=== PATIENT | male | born 1980 | race Caucasian/White ===

== ENCOUNTER 2019-02-19 21:33 | Emergency (ER) | payer SELFPAY ==
[~2019-02-19] VITALS: Ht 185.4 cm; Wt 88.5 kg
[~2019-02-19 21:33] MED LIST: HYDR-3583 PO; HYDR1CAP2 PO; NAPR-243 PO
--- OUTSIDE RECORDS SUMMARY | 2019-02-19 21:38 | XMS REPORT | Continuity of Care Document ---
Author Organization Unknown Address Unknown Allergies Active Description Code Type Severity Reaction Onset Reported/Identified Relationship to Patient Clinical Status Yes NKANo Known Allergies NKA Miscellaneous Allergy Unknown N/A 06/08/2006 Medications There is no data. Problems Date Dx Coded Attending Type Code Diagnosis Diagnosed By 03/26/2010 Ot 802.24 03/26/2010 Ot 959.09 03/26/2010 Ot E000.0 03/26/2010 Ot E016.9 03/26/2010 Ot E849.3 03/26/2010 Ot E917.9 02/26/2011 Ot 291.81 02/26/2011 Ot 303.00 02/26/2011 Ot 305.1 03/06/2012 Ot 840.9 03/06/2012 Ot 959.2 03/06/2012 Ot E000.0 03/06/2012 Ot E029.9 03/06/2012 Ot E849.8 03/06/2012 Ot E927.0 11/18/2014 MEHUL ARSHAD MD Ot 789.09 11/28/2014 MEHUL ARSHAD MD Ot 789.09 Procedures There is no data. Results There is no data. Encounters ACCT No. Visit Date/Time Discharge Status Pt. Type Provider Facility Loc./Unit Complaint [id number] 11/15/2014 09:17:00 11/15/2014 23:59:59 CLS Outpatient MEHUL ARSHAD MD [facility] RAD [id number] 03/06/2012 21:08:00 Document Registration [id number] 02/23/2011 18:32:00 Document Registration [id number] 03/26/2010 17:56:00 Document Registration [id number] 12/04/2018 10:50:00 12/04/2018 23:59:59 CLS [id number] 12/08/2018 15:20:00 12/08/2018 23:59:59 CLS [facility] [place]
[2019-02-19] MEDS ORDERED: NS IV 1000 ML 1,000 ML IV ONE (22:17)
[2019-02-19 22:37] LABS: BASOPHILS % (AUTO) 1 % (0-10); EOSINOPHILS # (AUTO) 0.3 10^3/uL (0.0-0.3); EOSINOPHILS % (AUTO) 4 % (0-10); HEMATOCRIT 45 % (40-54); HEMOGLOBIN 15.8 G/DL (13.3-17.7); LYMPHOCYTES # (AUTO) 2.1 X 10^3 (1.0-4.0); LYMPHOCYTES % (AUTO) 36 % (12-44); MEAN CORPUSCULAR HEMOGLOBIN 28 PG (25-34); MEAN CORPUSCULAR HGB CONC 35 G/DL (32-36); MEAN CORPUSCULAR VOLUME 81 FL (80-99); MEAN PLATELET VOLUME 10.3 FL (7.4-10.4); MONOCYTES # (AUTO) 0.5 X 10^3 (0.0-1.0); MONOCYTES % (AUTO) 9 % (0-12); NEUTROPHILS # (AUTO) 2.8 X 10^3 (1.8-7.8); NEUTROPHILS % (AUTO) 50 % (42-75); PLATELET COUNT 220 10^3/uL (130-400); RED CELL DISTRIBUTION WIDTH 13.9 % (10.0-14.5); WHITE BLOOD COUNT 5.7 10^3/uL (4.3-11.0)
[2019-02-19 22:54] LABS: ALANINE AMINOTRANSFERASE 49 U/L (0-55); ALBUMIN 4.2 GM/DL (3.2-4.5); ALKALINE PHOSPHATASE 91 U/L (40-136); BILIRUBIN,TOTAL 0.4 MG/DL (0.1-1.0); BUN/CREATININE RATIO 16; CALCIUM 9.5 MG/DL (8.5-10.1); CARBON DIOXIDE 24 MMOL/L (21-32); CHLORIDE 106 MMOL/L (98-107); CREATININE SERUM 0.79 MG/DL (0.60-1.30); GFR ESTIMATED > 60; GLUCOSE 97 MG/DL (70-105); POTASSIUM 3.5 MMOL/L (3.6-5.0); SODIUM 143 MMOL/L (135-145); TOTAL PROTEIN 6.7 GM/DL (6.4-8.2)
[2019-02-19] MEDS ORDERED: DOXYCYCLINE 100 MG (VIBRAMYCIN) TABLET PO STA (23:23)
--- NOTE | 2019-02-19 23:23 | ED General ---
General Stated Complaint: SWELLING IN BOTH LEGS Source of Information: Patient Exam Limitations: No Limitations History of Present Illness Date Seen by Provider: February 19, 2019 Time Seen by Provider: 22:12 Initial Comments Here with report of feet swelling bilateral he is unsure of the cause of that is concerned about infection. Does have athlete's foot to both feet that he is currently treating uplg-oel-bvtnirq. 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 Denies fever or chills. Denies weakness. Does report tick bite last week and believes that it may of been on for a day. Timing/Duration: 1-2 Days Severity: Mild, Moderate Modifying Factors: improves with Rest Associated Systoms: No Cough, No Fever/Chills, No Nausea/Vomiting, No Shortness of Air, No Weakness Allergies and Home Medications Allergies Coded Allergies: NKANo Known Allergies (Verified Allergy, Unknown, 06/08/06) Home Medications Hydrocodone Bit/Acetaminophen 1 Each Capsule, 1 EACH PO PRN, (Reported) Hydrocodone Bit/Acetaminophen 1 Tab Tab, 1 EA PO Q 4 - 6 HR PRN Prescribed by: SIENA SMITH on 03/26/102007 Naproxen 500 Mg Tablet, 1 EACH PO BID - TID PRN Prescribed by: JENA ELY on 03/06/122208 Patient Home Medication List Home Medication List Reviewed: Yes Review of Systems Review of Systems Constitutional: see HPI; No chills, No fever EENTM: no symptoms reported Respiratory: no symptoms reported Cardiovascular: no symptoms reported Gastrointestinal: no symptoms reported Genitourinary: no symptoms reported Musculoskeletal: see HPI, joint swelling, muscle pain Skin: no symptoms reported Psychiatric/Neurological: No Symptoms Reported All Other Systems Reviewed Negative Unless Noted: Yes Past Exhoaot-Etzcia-Vmtlac Hx Past Med/Social Hx: Reviewed Nursing Past Med/Soc Hx Patient Social History Alcohol Use: Occasionally Uses Recreational Drug Use: No Smoking Status: Current Everyday Smoker Recent Foreign Travel: No Contact w/Someone Who Travel: No Past Medical History Surgeries: Yes Orthopedic Respiratory: No Cardiac: No Neurological: No Reproductive Disorders: No Gastrointestinal: No Musculoskeletal: No Endocrine: No Family Medical History Reviewed Nursing Family Hx No Pertinent Family Hx Physical Exam Vital Signs Capillary Refill : Height, Weight, BMI Height: '" Weight: lbs. oz. kg; BMI Method:Stated General Appearance: No Apparent Distress, WD/WN HEENT: PERRL/EOMI, Pharynx Normal Neck: Non Tender, Supple Respiratory: Lungs Clear, Normal Breath Sounds Cardiovascular: Regular Rate, Rhythm, No Murmur Gastrointestinal: Non Tender, Soft Back: Normal Inspection, No CVA Tenderness, No Vertebral Tenderness Extremity: Swelling (bilateral ankles) Neurologic/Psychiatric: Alert, Oriented x3 Skin: Normal Color, Warm/Dry Focused Exam Lactate Level 02/19/19 22:24: Lactic Acid Level 1.57 Lactic Acid Level Laboratory Tests Test 02/19/19 22:24 Lactic Acid Level 1.57 MMOL/L (0.50-2.00) Progress/Results/Core Measures Suspected Sepsis SIRS Temperature: Pulse: Respiratory Rate: Laboratory Tests 02/19/19 22:24: White Blood Count 5.7 Blood Pressure / Mean: 02/19/19 22:24: Lactic Acid Level 1.57 Laboratory Tests 02/19/19 22:24: Creatinine 0.79, Platelet Count 220, Total Bilirubin 0.4 Results/Orders Lab Results Laboratory Tests Test 02/19/19 22:24 Range/Units White Blood Count 5.7 4.3-11.0 10^3/uL Red Blood Count 5.56 4.35-5.85 10^6/uL Hemoglobin 15.8 13.3-17.7 G/DL Hematocrit 45 40-54 % Mean Corpuscular Volume 81 80-99 FL Mean Corpuscular Hemoglobin 28 25-34 PG Mean Corpuscular Hemoglobin Concent 35 32-36 G/DL Red Cell Distribution Width 13.9 10.0-14.5 % Platelet Count 220 130-400 10^3/uL Mean Platelet Volume 10.3 7.4-10.4 FL Neutrophils (%) (Auto) 50 42-75 % Lymphocytes (%) (Auto) 36 12-44 % Monocytes (%) (Auto) 9 0-12 % Eosinophils (%) (Auto) 4 0-10 % Basophils (%) (Auto) 1 0-10 % Neutrophils # (Auto) 2.8 1.8-7.8 X 10^3 Lymphocytes # (Auto) 2.1 1.0-4.0 X 10^3 Monocytes # (Auto) 0.5 0.0-1.0 X 10^3 Eosinophils # (Auto) 0.3 0.0-0.3 10^3/uL Basophils # (Auto) 0.0 0.0-0.1 10^3/uL Sodium Level 143 135-145 MMOL/L Potassium Level 3.5 L 3.6-5.0 MMOL/L Chloride Level 106 98-107 MMOL/L Carbon Dioxide Level 24 21-32 MMOL/L Anion Gap 13 5-14 MMOL/L Blood Urea Nitrogen 13 7-18 MG/DL Creatinine 0.79 0.60-1.30 MG/DL Estimat Glomerular Filtration Rate > 60 BUN/Creatinine Ratio 16 Glucose Level 97 70-105 MG/DL Lactic Acid Level 1.57 0.50-2.00 MMOL/L Calcium Level 9.5 8.5-10.1 MG/DL Corrected Calcium 9.3 8.5-10.1 MG/DL Total Bilirubin 0.4 0.1-1.0 MG/DL Aspartate Amino Transf (AST/SGOT) 33 5-34 U/L Alanine Aminotransferase (ALT/SGPT) 49 0-55 U/L Alkaline Phosphatase 91 40-136 U/L C-Reactive Protein High Sensitivity 0.32 0.00-0.50 MG/DL Total Protein 6.7 6.4-8.2 GM/DL Albumin 4.2 3.2-4.5 GM/DL My Orders Orders - RAJ LOPEZ MD Ed Iv/Invasive Line Start (02/19/19 22:17) Ns Iv 1000 Ml (Sodium Chloride 0.9%) (02/19/19 22:17) Cbc With Automated Diff (02/19/19 22:17) Comprehensive Metabolic Panel (02/19/19 22:17) Hs C Reactive Protein (02/19/19 22:17) Lactic Acid Analyzer (02/19/19 22:17) Tick Panel With Lyme Eia (02/19/19 22:17) Blood Culture (02/19/19 22:17) Medications Given in ED Current Medications Medications Dose Ordered Sig/Arlyn Route Start Time Stop Time Status Last Admin Dose Admin Sodium Chloride 1,000 ml @ 0 mls/hr Q0M ONCE IV 02/19/19 22:17 02/19/19 22:20 DC 02/19/19 22:41 1,000 MLS/HR Vital Signs/I&O Capillary Refill : Progress Note : Progress Note Seen and evaluated. IV, labs, blood cultures and lactic acid ordered. Normal saline 1 L bolus. Monitor patient. 2325: Labs reviewed and are negative. Given his history of tick bite and history of MRSA we will initiate doxycycline. 10 day dose ordered and will be updated if tick panel was positive. Discharged home with return precautions. Patient verbalize understanding instructions and agreement with plan. Departure Impression Primary Impression: Bilateral swelling of feet and ankles Additional Impressions: Tick bite Qualified Codes: W57.XXXA - Bitten or stung by nonvenomous insect and other nonvenomous arthropods, initial encounter Athlete's foot Disposition: HOME, SELF-CARE Condition: Improved Departure-Patient Inst. Decision time for Depature: 23:28 Referrals: NO,LOCAL PHYSICIAN (PCP/Family) Primary Care Physician Patient Instructions: Athlete's Foot (DC), Insect Bites and Stings (DC) Add. Discharge Instructions: Take medications as directed. Follow-up with your Dr. in a few days for recheck. Return for worse pain, fever, vomiting, weakness, breathing around other concerns as needed. Use antifungal ytba-igb-lnzfyfh cream or powder for your athletes foot condition. You should replace your shoes and wear socks. Scripts Doxycycline Hyclate (Doxycycline Hyclate) 100 Mg Tablet 100 MG PO BID, #20 TAB 0 Refills Prov: RAJ LOPEZ MD 02/19/19 RAJ LOPEZ MD February 19, 2019 23:23
[2019-02-19] MEDS ORDERED: DOXY100T2 PO (23:31)
[2019-02-19 23:40] VITALS: BP 119/89
== END 2019-02-19 23:43 | disposition home or self-care (01) ==
LOC: EDUNIT# 21:33 → ER 21:34
DX: S80.861A Insect bite (nonvenomous), right lower leg, initial encounter (principal); S80.862A Insect bite (nonvenomous), left lower leg, initial encounter; B35.3 Tinea pedis; F17.200 Nicotine dependence, unspecified, uncomplicated; Z86.14 Personal history of Methicillin resistant Staphylococcus aureus infection; W57.XXXA Bitten or stung by nonvenomous insect and other nonvenomous arthropods, initial encounter
CPT/HCPCS: 36415; 80053; 83605; 85025; 86141; 86618; 86666; 86668; 86757; 87040

== ENCOUNTER → 2019-02-25 | Emergency (ER) | payer SELFPAY | LOC: ER 14:26 ==

== ENCOUNTER 2022-01-30 19:43 | Emergency (ER) | payer MEDICAID ==
[~2022-01-30] VITALS: Ht 182 cm; Wt 90.7 kg
[~2022-01-30 19:43] MED LIST changes: +DOXY100T2 PO
[2022-01-30] MEDS ORDERED: cefTRIAXone 1 GM PRE-MIX 50 ML IV ONE (20:15)
[2022-01-30] MEDS ORDERED: fentaNYL INJ 100 MCG/2 ML AMP IVP ONE (20:15)
[2022-01-30] MEDS ORDERED: NS IV 1000 ML 1,000 ML IV SCH ×2 (20:15)
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
[2022-01-30 20:27] LABS: BASOPHILS % (AUTO) 0 % (0-10); EOSINOPHILS # (AUTO) 0.5 10^3/uL (0.0-0.3); EOSINOPHILS % (AUTO) 4 % (0-10); HEMATOCRIT 41 % (40-54); LYMPHOCYTES # (AUTO) 1.4 10^3/uL (1.0-4.0); LYMPHOCYTES % (AUTO) 12 % (12-44); MEAN CORPUSCULAR HEMOGLOBIN 29 pg (25-34); MEAN CORPUSCULAR HGB CONC 34 g/dL (32-36); MEAN CORPUSCULAR VOLUME 83 fL (80-99); MEAN PLATELET VOLUME 10.1 fL (9.0-12.2); MONOCYTES # (AUTO) 1.3 10^3/uL (0.0-1.0); MONOCYTES % (AUTO) 11 % (0-12); NEUTROPHILS % (AUTO) 71 % (42-75); PLATELET COUNT 281 10^3/uL (130-400); WHITE BLOOD COUNT 11.2 10^3/uL (4.3-11.0)
[2022-01-30 20:29] LABS: ALBUMIN 3.8 GM/DL (3.2-4.5); POTASSIUM 3.8 MMOL/L (3.6-5.0)
[2022-01-30 20:30] LABS: CALCIUM 9.6 MG/DL (8.5-10.1)
[2022-01-30 20:31] LABS: TOTAL PROTEIN 7.4 GM/DL (6.4-8.2)
[2022-01-30 20:33] LABS: BILIRUBIN,TOTAL 0.7 MG/DL (0.1-1.0)
[2022-01-30 20:35] LABS: INR 1.1 (0.8-1.4); PROTHROMBIN TIME PATIENT 14.5 SEC (12.2-14.7)
--- NOTE | 2022-01-30 20:49 | Diagnostic Imaging Report ---
EXAMINATION: Chest 1 view. HISTORY: Sepsis. COMPARISON: None available. FINDINGS: The lung volumes are low. Bibasilar atelectasis is seen. No large pleural effusion or pneumothorax is seen. The cardiomediastinal silhouette is normal in size and contour. No acute osseous abnormality is seen. Old left-sided rib fractures are seen. IMPRESSION: Low lung volumes with bibasilar atelectasis. Dictated by: Dictated on workstation # [id number]
--- NOTE | 2022-01-30 20:49 | Diagnostic Imaging Report ---
PROCEDURE: CT urinary tract, rule out kidney stone. TECHNIQUE: Multiple contiguous axial images were obtained through the abdomen and pelvis without the use of intravenous contrast. Auto Exposure Controls were utilized during the CT exam to meet ALARA standards for radiation dose reduction. INDICATION: Flank pain. COMPARISON: None. FINDINGS: The heart is unremarkable. Subsegmental atelectasis is seen in the lung bases. A calculus is seen in the proximal right ureter measuring 1.1 cm. Calculus is seen in the proximal left ureter measuring 0.7 cm. There is moderate bilateral hydronephrosis. The urinary bladder is nondistended. No bladder calculi are seen. There is hepatic steatosis. No focal hepatic lesions are seen. The gallbladder is unremarkable. The spleen, pancreas and adrenal glands have a normal appearance. There is no pathologically enlarged mesenteric or retroperitoneal adenopathy. The bowel loops are nondilated. The appendix is visualized in the right lower quadrant and has a normal appearance. There is no free fluid or free air. No acute osseous abnormalities. Surgical hardware and chronic fractures are visualized in the pelvis. IVC filter is in place. There is no free air, loculated collection, or adenopathy in the pelvis. IMPRESSION: 1. Bilateral obstructing calculi in the proximal ureters with bilateral moderate hydronephrosis. 2. Hepatic steatosis. Dictated by: Dictated on workstation # [id number]
[2022-01-30 22:08] LABS: BILIRUBIN,URINE NEGATIVE (NEGATIVE); CLARITY,URINE SL CLOUDY; COLOR,URINE YELLOW; GLUCOSE, URINE (UA) NEGATIVE (NEGATIVE); KETONES,URINE NEGATIVE (NEGATIVE); LEUKOCYTE ESTERASE ,URINE 3+ (NEGATIVE); NITRITE,URINE NEGATIVE (NEGATIVE); PROTEIN,URINE 1+ (NEGATIVE)
--- NOTE | 2022-01-30 22:25 | Diagnostic Imaging Report ---
REASON FOR EXAM: Renal stone. COMPARISON: CT abdomen and pelvis performed earlier the same date. TECHNIQUE: Two views of the abdomen. FINDINGS: Calculi within the ureters are again visualized. The larger calculus in the proximal right ureter does not appear significantly changed. There may have been a small amount of migration of the smaller calculus in the left ureter now within the midportion of the left ureter. Moderate amount of stool is seen in the colon. IMPRESSION: Suggestion of small amount of migration of the smaller urolithiasis on the left with stable more proximal position of the large urolithiasis on the right. Dictated by: Dictated on workstation # [id number]
[2022-01-30] MEDS ORDERED: KETOROLAC 30 MG/ML VIAL IVP ONE (22:30)
[2022-01-30 22:39] LABS: BACTERIA,URINE LARGE /HPF; WBC,URINE 25-50 /HPF; YEAST,URINE LARGE /HPF
[2022-01-31 00:52] VITALS: BP 125/50
== END 2022-01-31 00:55 | disposition short-term general hospital (02) ==
LOC: EDUNIT# 19:43 → ER 19:44
DX: A41.9 Sepsis, unspecified organism (principal); N13.2 Hydronephrosis with renal and ureteral calculous obstruction; N30.00 Acute cystitis without hematuria
CPT/HCPCS: 36415; 71045; 74018; 74176; 80053; 81000; 83605; 85025; 85610; 85730; 87040; 87088